=== PATIENT | female | born 1940 | race Caucasian/White ===

== ENCOUNTER 2017-03-10 08:19 | Day surgery (SDC) | payer MEDICARE, BC ==
[~2017-03-10] VITALS: Ht 157.5 cm; Wt 79.4 kg
[~2017-03-10 08:19] MED LIST: ACYCLOVIR400 MG PO; AMLODIPINE2.5 MG PO; AMLODIPINE5 MG PO; ASPIRIN81 MG PO; ATENOLOL100 MG PO; ATENOLOL50 MG PO; BABY ASPIRIN81 MG PO; BL MAGNESIUM250 MG PO; CALCIUM + D600 MG OR; CIPRO500 MG OR; CIPROFLOXACIN500 M1 PO; CIPROFLOXACN500 MG PO; CITALOPRAM20 MG PO; COQ-10100 M1 PO; CYTOMEL5 MCG OR; DOXYCYCL HYC100 MG PO; DULCOLAX5 MG PO; ELIQUIS2.5 MG PO; ENALAPRIL20 MG PO; EQ ASPIRIN81 M1 PO; FISH OIL1200 M1 OR; GLUCOSAMINE1500 MG OR; LANCETS SC; LEVOTHYROXIN100 MC1 PO; LEVOTHYROXIN100 MCG PO; LEVOTHYROXIN125 MC1 PO; LEVOTHYROXIN150 MC1 PO; LEVOXYL75 MCG PO; LIOTHYRONINE5 MCG PO; MAGNESIUM250 M1 PO; MEDROL4 M1 OR; OMEPRAZOLE20 MG PO; OXYBUTYNIN5 M1 PO; OXYBUTYNIN5 MG PO; PRAVASTATIN40 MG PO; PREDNISONE10 MG PO; PRILOSEC20 MG PO; PROAIR HFA IN; PROPAFENONE150 M1 PO; PROPAFENONE150 MG PO; ROBITUSSIN AC10 ML PO; RYBIX ODT50 MG PO; SITAVIG50 MG; TEST STRIPS SC; TYLENOL PM PO; ULTRAM50 M1 PO; VASOTEC10 MG PO; WOMENS MULTI OR; XANAX0.25 MG PO
[2017-03-10 09:57] VITALS: BP 126/76
== END 2017-03-10 10:10 | disposition home or self-care (01) ==
LOC: ENDO 08:19
PROVIDERS: ATTEND Surgery
PROC: 0DJ08ZZ Inspection of Upper Intestinal Tract, Via Natural or Artificial Opening Endoscopic (ICD-10-PCS; principal; 2017-03-10)
PROC: 0DJD8ZZ Inspection of Lower Intestinal Tract, Via Natural or Artificial Opening Endoscopic (ICD-10-PCS; 2017-03-10)
DX: D64.9 Anemia, unspecified (principal); R19.5 Other fecal abnormalities; I48.91 Unspecified atrial fibrillation; I10 Essential (primary) hypertension; J45.909 Unspecified asthma, uncomplicated; K29.70 Gastritis, unspecified, without bleeding; K57.30 Diverticulosis of large intestine without perforation or abscess without bleeding; Z79.01 Long term (current) use of anticoagulants

== ENCOUNTER → 2018-12-27 | Outpatient (REF) | payer MEDICARE ==
[2018-12-27 10:33] LABS: HEMATOCRIT 38.1 % (37.0-47.0); HEMOGLOBIN 12.2 g/dl (12.0-16.0); MEAN CELL VOLUME 80.2 fL CALC (80.0-100.0); MEAN CORPUSCULAR HGB 25.7 pG CALC (26.0-32.0); RED BLOOD COUNT 4.75 mill/uL (4.20-5.60); RED CELL DISTRI WIDTH 16.2 % (11.5-15.5)
[2018-12-27 11:03] LABS: ALBUMIN 4.4 g/dL (3.2-5.0); ALKALINE PHOSPHATASE 81 u/l (38-126); ANION GAP 18 (6-22 (CALC)); BILIRUBIN, TOTAL 0.5 mg/dL (0.0-1.4); BUN 20 mg/dL (8-23); BUN/CREATININE RATIO 24 (12-20 (CALC)); C-REACTIVE PROTEIN 1.5 mg/dL (0-0.9); CARBON DIOXIDE 25 mmol/l (22-30); CHLORIDE 102 mmol/l (95-108); CREATININE 0.8 mg/dL (0.5-1.0); GFR > 60 ML/MIN (>=60 (CALC)); GFR FOR AFR.AMER. > 60 ML/MIN (>=60 (CALC)); POTASSIUM 4.2 mmol/l (3.5-5.1); SGOT/AST 44 u/l (9-36); SODIUM 141 mmol/l (137-146); TOTAL PROTEIN 7.1 g/dL (6.3-8.2)
== END | disposition home or self-care (01) ==
LOC: LAB 10:12
PROVIDERS: ATTEND Internal Medicine
DX: E03.9 Hypothyroidism, unspecified (principal); I48.0 Paroxysmal atrial fibrillation; M12.9 Arthropathy, unspecified; M54.9 Dorsalgia, unspecified; M15.0 Primary generalized (osteo)arthritis; M06.9 Rheumatoid arthritis, unspecified; R76.8 Other specified abnormal immunological findings in serum

== ENCOUNTER → 2019-01-11 | Outpatient (REF) | payer MEDICARE | END | disposition home or self-care (01) | LOC: STRESS 14:48 → NUCMED 15:00 | PROVIDERS: ATTEND Internal Medicine | DX: I48.1 Persistent atrial fibrillation (principal); I34.0 Nonrheumatic mitral (valve) insufficiency; I49.9 Cardiac arrhythmia, unspecified; R00.2 Palpitations | CPT/HCPCS: A9502; J2785 ==

== ENCOUNTER 2021-09-09 11:32 | Emergency (ER) | payer MEDICARE ==
[~2021-09-09] VITALS: Ht 157.5 cm; Wt 74.0 kg
[~2021-09-09 11:32] MED LIST changes: -PRILOSEC20 MG PO; +PRILOSEC20 MG/CAP PO
[2021-09-09 13:35] VITALS: BP 131/77
[2021-09-09] MEDS ORDERED: METFORMIN500 M2 PO (14:45)
[2021-09-09] MEDS ORDERED: PROPAFENONE225 MG PO (14:47)
[2021-09-09] MEDS ORDERED: LOSARTAN POTAS100 MG PO (14:47)
[2021-09-09] MEDS ORDERED: AMLODIPINE BESY10 MG PO (14:48)
[2021-09-09] MEDS ORDERED: COQ10200 MG PO (14:49)
[2021-09-09] MEDS ORDERED: ACYCLOVIR200 MG PO (14:53)
[2021-09-09] MEDS ORDERED: ALBUTEROL SUL0.083 % IN (14:54)
[2021-09-09] MEDS ORDERED: SYMBICORT1 AE1 IN (14:54)
[2021-09-09] MEDS ORDERED: ALLERGY RE50 MCG/ACT NAB (14:55)
[2021-09-09] MEDS ORDERED: APRESOLINE10 MG PO (14:56)
[2021-09-09] MEDS ORDERED: LUMIGAN0.01 % OU (14:57)
[2021-09-09] MEDS ORDERED: FISH OIL1000 MG PO (14:58)
[2021-09-09] MEDS ORDERED: LUTEIN20 MG PO (14:58)
[2021-09-09] MEDS ORDERED: ZINC50 M1 PO (14:59)
[2021-09-09] MEDS ORDERED: VITAMIN C500 M6 PO (15:00)
[2021-09-09] MEDS ORDERED: COGNIUM PO (15:01)
== END 2021-09-09 13:35 | disposition home or self-care (01) ==
LOC: ED 11:32
DX: S80.01XA Contusion of right knee, initial encounter (principal); S80.211A Abrasion, right knee, initial encounter; M25.551 Pain in right hip; I10 Essential (primary) hypertension; E11.9 Type 2 diabetes mellitus without complications; J44.9 Chronic obstructive pulmonary disease, unspecified; E03.9 Hypothyroidism, unspecified; E78.5 Hyperlipidemia, unspecified; W06.XXXA Fall from bed, initial encounter; Y92.003 Bedroom of unspecified non-institutional (private) residence as the place of occurrence of the external cause; Z79.84 Long term (current) use of oral hypoglycemic drugs; Z96.651 Presence of right artificial knee joint

== ENCOUNTER 2022-12-12 15:53 | Emergency (ER) | payer MEDICARE ==
[2022-12-12] VITALS (10 sets, daily range): BP systolic 127–204; BP diastolic 58–80
[~2022-12-12] VITALS: Ht 157.5 cm; Wt 90.0 kg
[~2022-12-12 15:53] MED LIST changes: +ACYCLOVIR200 MG PO; +ALBUTEROL SUL0.083 % IN; +ALLERGY RE50 MCG/ACT NAB; +AMLODIPINE BESY10 MG PO; +APRESOLINE10 MG PO; +COGNIUM PO; +COQ10200 MG PO; +FISH OIL1000 MG PO; +LOSARTAN POTAS100 MG PO; +LUMIGAN0.01 % OU; +LUTEIN20 MG PO; +METFORMIN500 M2 PO; +PROPAFENONE225 MG PO; +SYMBICORT1 AE1 IN; +VITAMIN C500 M6 PO; +ZINC50 M1 PO
[2022-12-12 16:38] LABS: BASO% 0.9 % (0-3); EOS% 5.5 % (0-8); HEMATOCRIT 37.8 % (37.0-47.0); HEMOGLOBIN 12.2 g/dl (12.0-16.0); IMMATURE GRANULOCYTES 0.1 % (0.0-5.0); LYMPH% 20.5 % (15-41); MEAN CELL VOLUME 86.5 fL CALC (80.0-100.0); MEAN CORPUSCULAR HGB 27.9 pG CALC (26.0-32.0); MEAN CORPUSCULAR HGB CONC 32.3 g/dL CAL (32.0-36.0); MONO% 7.5 % (2-13); NEUT# 5.52 thou/uL (2.00-7.15); NEUT% 65.5 % (42-76); RED BLOOD COUNT 4.37 mill/uL (4.20-5.60); RED CELL DISTRI WIDTH 13.3 % (11.5-15.5)
[2022-12-12 16:49] LABS: ALBUMIN 4.1 g/dL (3.2-5.0); ALKALINE PHOSPHATASE 72 u/l (38-126); BUN 11 mg/dL (8-23); BUN/CREATININE RATIO 14 (12-20 (CALC)); CHLORIDE 107 mmol/l (95-108); CREATININE 0.8 mg/dL (0.5-1.0); GFR FOR AFR.AMER. > 60 ML/MIN (>=60 (CALC)); GFR OTHER RACES > 60 ML/MIN (>=60 (CALC)); POTASSIUM 3.7 mmol/l (3.5-5.1); SGOT/AST 23 u/l (9-36); SODIUM 140 mmol/l (137-146); TOTAL PROTEIN 6.8 g/dL (6.3-8.2)
[2022-12-12 16:57] LABS: ANION GAP 8 (6-22 (CALC)); BILIRUBIN, TOTAL 0.1 mg/dL (0.02-1.3); CARBON DIOXIDE 29 mmol/l (22-30)
[2022-12-12] MEDS ORDERED: VIBRAMYCIN100 M2 PO (19:05)
[2022-12-12] MEDS ORDERED: PREDNISONE50 MG PO (19:05)
[2022-12-12] MEDS ORDERED: VENTOLIN HFA IN (19:05)
== END 2022-12-12 19:46 | disposition home or self-care (01) ==
LOC: ED 15:53
PROVIDERS: Emergency Medicine
DX: J44.1 Chronic obstructive pulmonary disease with (acute) exacerbation (principal); I10 Essential (primary) hypertension; E11.9 Type 2 diabetes mellitus without complications; E03.9 Hypothyroidism, unspecified; E78.5 Hyperlipidemia, unspecified; F17.200 Nicotine dependence, unspecified, uncomplicated; Z20.822 Contact with and (suspected) exposure to COVID-19

== ENCOUNTER 2023-01-11 14:32 | Emergency (ER) | payer MEDICARE ==
[~2023-01-11] VITALS: Ht 157.5 cm; Wt 66.7 kg
[~2023-01-11 14:32] MED LIST changes: +PREDNISONE50 MG PO; +VENTOLIN HFA IN; +VIBRAMYCIN100 M2 PO
[2023-01-11 14:53] VITALS: BP 132/50
[2023-01-11 15:01] VITALS: BP 128/94
[2023-01-11 15:31] LABS: BASO% 0.9 % (0-3); EOS% 2.9 % (0-8); HEMATOCRIT 35.8 % (37.0-47.0); IMMATURE GRANULOCYTES 0.2 % (0.0-5.0); LYMPH% 22.8 % (15-41); MEAN CELL VOLUME 85.4 fL CALC (80.0-100.0); MEAN CORPUSCULAR HGB 26.7 pG CALC (26.0-32.0); MEAN CORPUSCULAR HGB CONC 31.3 g/dL CAL (32.0-36.0); MONO% 6.2 % (2-13); NEUT# 4.45 thou/uL (2.00-7.15); RED BLOOD COUNT 4.19 mill/uL (4.20-5.60); RED CELL DISTRI WIDTH 14.6 % (11.5-15.5)
[2023-01-11 15:33] LABS: HEMOGLOBIN 11.2 g/dl (12.0-16.0)
[2023-01-11 15:47] LABS: ALKALINE PHOSPHATASE 76 u/l (38-126); ANION GAP 15 (6-22 (CALC)); BILIRUBIN, TOTAL 0.3 mg/dL (0.02-1.3); BUN 19 mg/dL (8-23); BUN/CREATININE RATIO 21 (12-20 (CALC)); CHLORIDE 105 mmol/l (95-108); CREATININE 0.9 mg/dL (0.5-1.0); GFR FOR AFR.AMER. > 60 ML/MIN (>=60 (CALC)); GFR OTHER RACES 60 ML/MIN (>=60 (CALC)); SGOT/AST 28 u/l (9-36); SODIUM 139 mmol/l (137-146); TOTAL PROTEIN 6.7 g/dL (6.3-8.2)
[2023-01-11 15:50] LABS: CARBON DIOXIDE 23 mmol/l (22-30)
[2023-01-11] MEDS ORDERED: ALBUTEROL SUL0.083 % IN (15:53)
[2023-01-11] MEDS ORDERED: PREDNISONE50 MG PO (15:53)
[2023-01-11] MEDS ORDERED: DOXYCYCLINE100 MG PO (15:53)
[2023-01-11] MEDS ORDERED: VENTOLIN HFA108 MCG PO (15:53)
[2023-01-11 16:25] VITALS: BP 128/94
== END 2023-01-11 16:36 | disposition home or self-care (01) ==
LOC: ED 14:32
PROVIDERS: Family Medicine
DX: J44.1 Chronic obstructive pulmonary disease with (acute) exacerbation (principal); I10 Essential (primary) hypertension; E11.9 Type 2 diabetes mellitus without complications; E03.9 Hypothyroidism, unspecified; E78.5 Hyperlipidemia, unspecified; F17.210 Nicotine dependence, cigarettes, uncomplicated; Z79.84 Long term (current) use of oral hypoglycemic drugs; Z20.822 Contact with and (suspected) exposure to COVID-19

== ENCOUNTER 2023-06-23 02:45 | Observation (INO) | payer MEDICARE ==
[2023-06-23] VITALS (15 sets, daily range): BP systolic 114–175; BP diastolic 43–127
[~2023-06-23] VITALS: Ht 157.5 cm; Wt 70.3 kg
[~2023-06-23 02:45] MED LIST changes: +DOXYCYCLINE100 MG PO; +VENTOLIN HFA108 MCG PO
--- NOTE | 2023-06-23 02:45 | NUR ---
PT TO ED ROOM - DAUGHTER COME IN ER IN PANIC STATING HER MOTHER CANNOT BREATH; ED RN TOOK WC TO CAR IN PARKING LOT TO PICK PT UP; PT ALERT ORIENTED AND WITH ACCELLERATED BREATHING
[2023-06-23 03:24] LABS: BASO% 1.3 % (0-3); EOS% 5.8 % (0-8); HEMATOCRIT 26.2 % (37.0-47.0); HEMOGLOBIN 7.6 g/dl (12.0-16.0); IMMATURE GRANULOCYTES 0.2 % (0.0-5.0); LYMPH% 27.4 % (15-41); MEAN CELL VOLUME 70.8 fL CALC (80.0-100.0); MEAN CORPUSCULAR HGB 20.5 pG CALC (26.0-32.0); MONO% 5.8 % (2-13); NEUT# 5.94 thou/uL (2.00-7.15); NEUT% 59.5 % (42-76); RED BLOOD COUNT 3.7 mill/uL (4.20-5.60); RED CELL DISTRI WIDTH 17.7 % (11.5-15.5)
--- NOTE | 2023-06-23 03:30 | NUR ---
PT RESTING; PT RESTLESS BUT 02 IS 100% ON 3L NC; VSS
[2023-06-23 03:36] LABS: INTERNATIONAL NORMALIZED RATIO 1.1 RATIO (0.7-1.3); PROTHROMBIN TIME 10.6 SECONDS (9.0-12.5)
[2023-06-23 03:38] LABS: ALBUMIN 4.4 g/dL (3.2-5.0); ALKALINE PHOSPHATASE 74 u/l (38-126); BILIRUBIN, TOTAL 0.6 mg/dL (0.02-1.3); BUN 23 mg/dL (8-23); BUN/CREATININE RATIO 22 (12-20 (CALC)); CHLORIDE 105 mmol/l (95-108); CREATININE 1.1 mg/dL (0.5-1.0); GFR FOR AFR.AMER. 57 ML/MIN (>=60 (CALC)); GFR OTHER RACES 47 ML/MIN (>=60 (CALC)); POTASSIUM 3.9 mmol/l (3.5-5.1); SODIUM 138 mmol/l (137-146); TOTAL PROTEIN 7.6 g/dL (6.3-8.2)
[2023-06-23 03:45] LABS: ANION GAP 16 (6-22 (CALC)); CARBON DIOXIDE 21 mmol/l (22-30); SGOT/AST 51 u/l (9-36)
--- NOTE | 2023-06-23 04:38 | NUR ---
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
--- NOTE | 2023-06-23 05:45 | NUR ---
PT TO CTA SCAN; BREEZY IV PLACED VIA ULTRASOUND WITH US GUIDED 20G
--- NOTE | 2023-06-23 06:06 | NUR ---
PT RETURNED BACK FROM CT SCAN; PT WAS ABLE TO MAKE IT THROUGH DESPITE ANXIOUSNESS; PT PLACED ON PURWICK; BACK ON MONITOR; VSS BUT PATIENT REMAINS RESTLESS.
--- NOTE | 2023-06-23 06:15 | NUR ---
PT BEATRIZ REPLACED AND WORKING WELL, VSS
--- NOTE | 2023-06-23 07:00 | NUR ---
UNABLE TO TX PT DUE TO CARE FOR ANOTHER PT. PT VSS AND NAD; HANDING OFF REPORT TO DAYSNDFT RN
--- NOTE | 2023-06-23 07:15 | NUR ---
VERBAL REPORT RECIEVED BY JAIMIE MICHAEL. SN NOW ASSUMING CARE OF THE PATIENT AT THIS TIME. PATIENT IN NO DISTRESS. OXYGEN APPLIED AT 2L VIA NASAL CANNULA. MONITOR SHOWS NSR. REPAEAT EKG COMPLETED. REVIEWED LABS, BED ASSIGMENT RECIEVED ON TIMERS INSPECTOR.
[2023-06-23] MEDS ORDERED: MECLIZINE25 MG PO (07:45)
[2023-06-23] MEDS ORDERED: FUROSEMIDE20 MG PO (07:46)
[2023-06-23] MEDS ORDERED: AMBIEN5 MG PO (07:47)
[2023-06-23] MEDS ORDERED: XALATAN 0.005%2.5 ML OU (07:49)
--- NOTE | 2023-06-23 07:50 | NUR ---
VERBAL REPORT CALLED TO FATEMEH MICHAEL ON MED-SURG. PATIENT PREPARED FOR TRANSFER TO THE FLOOR.
[2023-06-23] MEDS ORDERED: BRIMONIDINE0.15 % OU (07:51)
--- NOTE | 2023-06-23 08:30 | NUR ---
Patient arrived via w/c from ED with FERNANDA Buchanan. Bedside report completed. Patient in no distress, AAO, on 2L NC, ambulatory to bathroom with no assistance. #20 x 2 to LUE, saline locked, no pain or redness.
[2023-06-23] MEDS ORDERED: MAGNESIUM CITR100 M1 PO (10:34)
[2023-06-23] MEDS ORDERED: ZINC50 M1 PO (10:35)
[2023-06-23] MEDS ORDERED: TURMERIC CURCU500 MG PO (10:39)
--- NOTE | 2023-06-23 11:28 | NUR ---
pt glucose was 165 @1100
[2023-06-23 11:33] LABS: BASO% 0.8 % (0-3); HEMATOCRIT 25.3 % (37.0-47.0); HEMOGLOBIN 7.5 g/dl (12.0-16.0); IMMATURE GRANULOCYTES 0.9 % (0.0-5.0); LYMPH% 6.1 % (15-41); MEAN CELL VOLUME 70.1 fL CALC (80.0-100.0); MEAN CORPUSCULAR HGB 20.8 pG CALC (26.0-32.0); MEAN CORPUSCULAR HGB CONC 29.6 g/dL CAL (32.0-36.0); MONO% 0.8 % (2-13); NEUT# 8.48 thou/uL (2.00-7.15); NEUT% 91.4 % (42-76); RED BLOOD COUNT 3.61 mill/uL (4.20-5.60); RED CELL DISTRI WIDTH 17.9 % (11.5-15.5)
--- NOTE | 2023-06-23 12:40 | NUR ---
Patient returned to bed from EOB for lunch. Daughter at bedside and updated with POC. No questions at this time. VSS. No complaints at this time. Continues with 2L NC.
[2023-06-23 12:41] LABS: ALBUMIN 4.2 g/dL (3.2-5.0); ALKALINE PHOSPHATASE 74 u/l (38-126); ANION GAP 19 (6-22 (CALC)); BILIRUBIN, TOTAL 0.4 mg/dL (0.02-1.3); BUN 20 mg/dL (8-23); BUN/CREATININE RATIO 22 (12-20 (CALC)); CARBON DIOXIDE 20 mmol/l (22-30); CHLORIDE 105 mmol/l (95-108); CREATININE 0.9 mg/dL (0.5-1.0); GFR FOR AFR.AMER. > 60 ML/MIN (>=60 (CALC)); GFR OTHER RACES 60 ML/MIN (>=60 (CALC)); POTASSIUM 4.1 mmol/l (3.5-5.1); SGOT/AST 45 u/l (9-36); SODIUM 139 mmol/l (137-146); TOTAL PROTEIN 6.8 g/dL (6.3-8.2)
--- NOTE | 2023-06-23 15:17 | NUR ---
pt glucose was 237 @1515
--- NOTE | 2023-06-23 16:55 | NUR ---
Patient remains in bed, independently repositions. Daughter given update on POC at this time, no additional questions. 2L NC continues. NAD, VSS.
--- NOTE | 2023-06-23 19:00 | NUR ---
HAND OFF REPORT RECEIVE FROM RICKI
--- NOTE | 2023-06-23 19:09 | NUR ---
Report to FERNANDA Mast;. Handoff of care at this time.
--- NOTE | 2023-06-23 20:02 | NUR ---
PATIENT RESTING QUIELTY WITH EYES CLOSED, RESPIRATIONS EVEN AND UNLABORED, LIGHTS OFF FOR COMFORT, NO C/O PAIN OR DISCOMFORT, NO S/S OF DISTRESS NOTED AT THIS TIME.
--- NOTE | 2023-06-23 22:00 | NUR ---
PATIENT RESTING WITH EYES CLOSED, RESPIRATIONS EVEN AND UNLABORED ON O2@2L VIA NC, NO C/O PAIN OR DISCOMFORT, NO S/S OF DISTRESS NOTED.
--- NOTE | 2023-06-23 22:38 | NUR ---
RESPIRATORY AT THE BEDSIDE
[2023-06-24] VITALS (24 sets, daily range): BP systolic 114–158; BP diastolic 37–122
--- NOTE | 2023-06-24 00:02 | NUR ---
PATIENT RESTING QUIETLY WITH EYES CLOSED, RESPIRATIONS EVEN AND UNLABORED N O2@2L BY NC, NO C/O PAIN OR DISCOMFORT, NO S/S OF DISTRESS NOTED, LIGHTS OFF FOR PATIENT COMFORT.
--- NOTE | 2023-06-24 04:00 | NUR ---
PATIENT UP TO BEDSIDE COMMODE INDEPENDENTLY, RESPIRATIONS EVEN AND UNALBORED, SOB WITH EXERTION, NO C/O PAIN OR DISCOMFORT, NO S/S OF DISTRESS NOTED, PATIENT ON O2@2L BY NC
[2023-06-24 06:15] LABS: HEMATOCRIT 23.4 % (37.0-47.0); MEAN CELL VOLUME 70.5 fL CALC (80.0-100.0); MEAN CORPUSCULAR HGB 21.1 pG CALC (26.0-32.0); MEAN CORPUSCULAR HGB CONC 29.9 g/dL CAL (32.0-36.0); RED BLOOD COUNT 3.32 mill/uL (4.20-5.60); RED CELL DISTRI WIDTH 18.1 % (11.5-15.5)
[2023-06-24 06:29] LABS: ANION GAP 16 (6-22 (CALC)); BUN 28 mg/dL (8-23); BUN/CREATININE RATIO 28 (12-20 (CALC)); CALCULATED LDLCHOLESTEROL 79 mg/dL (62-129 (CALC)); CARBON DIOXIDE 22 mmol/l (22-30); CHLORIDE 105 mmol/l (95-108); CHOLESTEROL HDL RATIO 2.4 (<4.4 (CALC)); GFR FOR AFR.AMER. > 60 ML/MIN (>=60 (CALC)); GFR OTHER RACES 53 ML/MIN (>=60 (CALC)); HDL CHOLESTEROL 64 mg/dL (39.0-59.0); MAGNESIUM 1.6 mg/dL (1.6-2.3); POTASSIUM 4.6 mmol/l (3.5-5.1); SODIUM 138 mmol/l (137-146); TOTAL CHOLESTEROL 156 mg/dl (0-199); TOTAL TRIGLYCERIDES 67 mg/dl (0-149); VLDL CHOLESTROL 13 mg/dl (0-48 (CALC))
--- NOTE | 2023-06-24 10:13 | NUR ---
PT AWAKE, ALERT, ORIENTED X 3. LUNGS CLEAR, DIMINISHED, 2 LPM NC. PT AMBULATORY TO BR NEEDED WITH STANDBY ASSIST. BLOOD TRANSFUSION IN PROGRESS WITHOUT ADVERSE REACTION NOTED.
--- NOTE | 2023-06-24 12:13 | NUR ---
BLOOD TRANSFUSION COMPLETED WITHOUT A PROBLEM. DAUGHTER ERIC AT BEDSIDE.
--- NOTE | 2023-06-24 16:36 | NUR ---
PT AT REST IN THE BED, NO DISTRESS, NO COMPLAINTS.
--- NOTE | 2023-06-24 19:00 | NUR ---
HAND OFF REPORT RECEIVED FROM PEGGY
--- NOTE | 2023-06-24 19:53 | NUR ---
PATIENT AWAKE AND ALERT, TALKING ON THE TELEPHONE, RESPIRATIONS EVEN AND UNLABORED ON O2@2L BY NC, NO C/O PAIN OR DISCOMFORT, NO S/S OF DISTRESS NOTED.
--- NOTE | 2023-06-24 22:00 | NUR ---
PATIENT RESTING QUIETLY WITH EYES CLOSED, RESPIRATIONS EVEN AN DUNALBORED ON O222L BY NC, NO C/O PAIN OR DISCOMFORT, NO S/S OF DISTRESS NOTED.
--- NOTE | 2023-06-24 22:30 | NUR ---
RESPIRATORY AT BEDSIDE.
--- NOTE | 2023-06-25 00:06 | NUR ---
PATIENT UP TOT HE BATHROOM, NO C/O PAIN, NO S/S OF DISTRESS NOTED, SOB ON EXERTION
--- NOTE | 2023-06-25 02:00 | NUR ---
PATIENT RESTING QUIETLY WITH EYES CLOSED, RESPIRATIONS EVEN AND UNLABORED
--- NOTE | 2023-06-25 05:46 | NUR ---
lab at bedside
[2023-06-25 06:03] LABS: BASO% 0.2 % (0-3); HEMATOCRIT 28.1 % (37.0-47.0); HEMOGLOBIN 8.4 g/dl (12.0-16.0); IMMATURE GRANULOCYTES 0.3 % (0.0-5.0); LYMPH% 5.8 % (15-41); MEAN CELL VOLUME 72.8 fL CALC (80.0-100.0); MEAN CORPUSCULAR HGB 21.8 pG CALC (26.0-32.0); MEAN CORPUSCULAR HGB CONC 29.9 g/dL CAL (32.0-36.0); MONO% 2.5 % (2-13); NEUT# 11.35 thou/uL (2.00-7.15); NEUT% 91.2 % (42-76); RED BLOOD COUNT 3.86 mill/uL (4.20-5.60); RED CELL DISTRI WIDTH 19.2 % (11.5-15.5)
[2023-06-25 06:17] LABS: ALBUMIN 3.8 g/dL (3.2-5.0); ALKALINE PHOSPHATASE 64 u/l (38-126); ANION GAP 14 (6-22 (CALC)); BILIRUBIN, TOTAL 0.5 mg/dL (0.02-1.3); BUN 38 mg/dL (8-23); BUN/CREATININE RATIO 39 (12-20 (CALC)); CARBON DIOXIDE 22 mmol/l (22-30); CHLORIDE 108 mmol/l (95-108); GFR FOR AFR.AMER. > 60 ML/MIN (>=60 (CALC)); GFR OTHER RACES 53 ML/MIN (>=60 (CALC)); MAGNESIUM 1.7 mg/dL (1.6-2.3); POTASSIUM 4.8 mmol/l (3.5-5.1); SGOT/AST 58 u/l (9-36); SODIUM 138 mmol/l (137-146); TOTAL PROTEIN 6.3 g/dL (6.3-8.2)
[2023-06-25 07:20] VITALS: BP 188/80
--- NOTE | 2023-06-25 07:57 | NUR ---
Patient sitting up on side of bed eating breakfast. Denies any pain at this time. Lungs coarse to ascultation. Ambulatory. Breathing even and unlabored on 2L NC. Afebrile. 22 LFA flushes and draws well. Pulses strong. NAD noted. Bed in low position. Call light next to RA. Will continue to monitor.
[2023-06-25 08:07] VITALS: BP 153/61
[2023-06-25 08:56] VITALS: BP 153/61
--- NOTE | 2023-06-25 10:41 | NUR ---
Patient up to chair. Daughter at bedtime awaiting discharge orders. Daughter/patient advised of lab add-on. Stated will call once orders are received as daughter has not had breakfast. Denies pain at this time. SR on the monitor. NAD noted. Will continue to monitor.
[2023-06-25] MEDS ORDERED: PREDNISONE10 MG PO (11:56)
--- NOTE | 2023-06-25 12:17 | NUR ---
Discharge instructions given. Patient verbalizes understanding of same. Discharged in stable condition via WHEELCHAIR to Home with family. All belongings sent with pt.
== END 2023-06-25 12:17 | disposition home or self-care (01) ==
LOC: ED 02:45 → MS2 05:03 → ICU 05:03 → MS2 05:03 → ICU 08:55
PROVIDERS: Emergency Medicine; Nurse Practitioner Family; ADMIT Student in an Organized Health Care Education/Training Program; ATTEND Student in an Organized Health Care Education/Training Program
PROC: 30233N1 Transfusion of Nonautologous Red Blood Cells into Peripheral Vein, Percutaneous Approach (ICD-10-PCS; principal; 2023-06-24)
DX: J44.1 Chronic obstructive pulmonary disease with (acute) exacerbation (principal); D50.9 Iron deficiency anemia, unspecified; I10 Essential (primary) hypertension; E11.9 Type 2 diabetes mellitus without complications; I48.91 Unspecified atrial fibrillation; I48.92 Unspecified atrial flutter; E89.2 Postprocedural hypoparathyroidism; E03.9 Hypothyroidism, unspecified; E78.5 Hyperlipidemia, unspecified; K21.9 Gastro-esophageal reflux disease without esophagitis; Z95.818 Presence of other cardiac implants and grafts; Z79.84 Long term (current) use of oral hypoglycemic drugs; Z99.81 Dependence on supplemental oxygen
CPT/HCPCS: P9016; Q9967

== ENCOUNTER 2023-07-09 07:47 | Observation (INO) | payer MEDICARE ==
[2023-07-09] VITALS (65 sets, daily range): BP systolic 111–170; BP diastolic 51–128
[~2023-07-09] VITALS: Ht 157.5 cm; Wt 69.4 kg
[~2023-07-09 07:47] MED LIST changes: +AMBIEN5 MG PO; -BL MAGNESIUM250 MG PO; +BRIMONIDINE0.15 % OU; +FISH OIL DOUB1200 MG PO; -FISH OIL1000 MG PO; +FUROSEMIDE20 MG PO; +MAGNESIUM CITR100 M1 PO; +MAGNESIUM CITR100 MG PO; +MECLIZINE25 MG PO; +OMEPRAZOLE DR40 MG PO; -PRILOSEC20 MG/CAP PO; +TURMERIC CURCU500 MG PO; +XALATAN 0.005%2.5 ML OU
[2023-07-09] MEDS ORDERED: LEVOTHYROXIN175 MC1 PO (08:27)
[2023-07-09] MEDS ORDERED: ACYCLOVIR400 MG PO (08:31)
[2023-07-09] MEDS ORDERED: MECLIZINE25 MG PO (08:33)
[2023-07-09] MEDS ORDERED: XALATAN 0.005%2.5 ML OU (08:36)
[2023-07-09] MEDS ORDERED: D32000 UNIT PO (08:45)
[2023-07-09 08:59] LABS: BASO% 0.7 % (0-3); EOS% 1.9 % (0-8); HEMATOCRIT 29.5 % (37.0-47.0); HEMOGLOBIN 8.6 g/dl (12.0-16.0); IMMATURE GRANULOCYTES 0.2 % (0.0-5.0); LYMPH% 7.9 % (15-41); MEAN CELL VOLUME 74.7 fL CALC (80.0-100.0); MEAN CORPUSCULAR HGB 21.8 pG CALC (26.0-32.0); MEAN CORPUSCULAR HGB CONC 29.2 g/dL CAL (32.0-36.0); MONO% 4.8 % (2-13); NEUT# 13.42 thou/uL (2.00-7.15); NEUT% 84.5 % (42-76); RED BLOOD COUNT 3.95 mill/uL (4.20-5.60); RED CELL DISTRI WIDTH 21.9 % (11.5-15.5)
[2023-07-09 09:20] LABS: ALBUMIN 4.2 g/dL (3.2-5.0); ALKALINE PHOSPHATASE 80 u/l (38-126); BUN 20 mg/dL (8-23); BUN/CREATININE RATIO 20 (12-20 (CALC)); CHLORIDE 106 mmol/l (95-108); GFR FOR AFR.AMER. > 60 ML/MIN (>=60 (CALC)); GFR OTHER RACES 53 ML/MIN (>=60 (CALC)); POTASSIUM 3.5 mmol/l (3.5-5.1); SODIUM 140 mmol/l (137-146)
[2023-07-09 09:21] LABS: INTERNATIONAL NORMALIZED RATIO 1.1 RATIO (0.7-1.3); PROTHROMBIN TIME 10.6 SECONDS (9.0-12.5)
[2023-07-09 09:31] LABS: ANION GAP 18 (6-22 (CALC)); BILIRUBIN, TOTAL 0.7 mg/dL (0.02-1.3); CARBON DIOXIDE 20 mmol/l (22-30); SGOT/AST 61 u/l (9-36); TOTAL PROTEIN 7.1 g/dL (6.3-8.2)
[2023-07-09 12:24] LABS: URINE BILIRUBIN - DIPSTICK Negative (NEGATIVE); URINE BLOOD DIPSTICK Negative (NEGATIVE); URINE GLUCOSE - DIPSTICK 100 mg/dL (NEGATIVE); URINE KETONE Negative (NEGATIVE); URINE LEUK ESTERASE Negative (NEGATIVE); URINE NITRITE - DIPSTICK Negative (Negative); URINE PH 6.5 (4.5-8.0); URINE PROTEIN - DIPSTICK Negative (NEG-TRACE); URINE SPECIFIC GRAVITY 1.015; URINE UROBILINOGEN - DIPSTICK 0.2 E.U./dL (0.2)
[2023-07-09 12:29] LABS: URINE COLOR Yellow
[2023-07-10 00:11] VITALS: BP 141/57
[2023-07-10 04:20] VITALS: BP 144/54
[2023-07-10 05:25] LABS: BASO% 0.3 % (0-3); HEMOGLOBIN 7.6 g/dl (12.0-16.0); MEAN CELL VOLUME 71.6 fL CALC (80.0-100.0); MEAN CORPUSCULAR HGB 21.8 pG CALC (26.0-32.0); MEAN CORPUSCULAR HGB CONC 30.4 g/dL CAL (32.0-36.0); MONO% 4.7 % (2-13); NEUT# 9.44 thou/uL (2.00-7.15); RED BLOOD COUNT 3.49 mill/uL (4.20-5.60); RED CELL DISTRI WIDTH 21.4 % (11.5-15.5)
[2023-07-10 05:35] LABS: ALBUMIN 3.7 g/dL (3.2-5.0); ALKALINE PHOSPHATASE 67 u/l (38-126); BILIRUBIN, TOTAL 0.9 mg/dL (0.02-1.3); BUN 22 mg/dL (8-23); BUN/CREATININE RATIO 22 (12-20 (CALC)); CHLORIDE 104 mmol/l (95-108); GFR FOR AFR.AMER. > 60 ML/MIN (>=60 (CALC)); GFR OTHER RACES 53 ML/MIN (>=60 (CALC)); POTASSIUM 3.6 mmol/l (3.5-5.1); SGOT/AST 39 u/l (9-36); SODIUM 138 mmol/l (137-146); TOTAL PROTEIN 6.2 g/dL (6.3-8.2)
[2023-07-10 05:37] LABS: ANION GAP 10 (6-22 (CALC)); CARBON DIOXIDE 28 mmol/l (22-30); MAGNESIUM 1.2 mg/dL (1.6-2.3)
[2023-07-10 06:55] VITALS: BP 134/54
[2023-07-10 11:54] VITALS: BP 134/54
[2023-07-10 14:36] VITALS: BP 130/68
[2023-07-10 19:55] VITALS: BP 148/64
[2023-07-11 00:07] VITALS: BP 128/58
[2023-07-11 04:05] VITALS: BP 113/56
[2023-07-11 06:42] LABS: BASO% 0.8 % (0-3); EOS% 0.6 % (0-8); HEMATOCRIT 28.8 % (37.0-47.0); IMMATURE GRANULOCYTES 0.3 % (0.0-5.0); LYMPH% 12.4 % (15-41); MEAN CELL VOLUME 71.5 fL CALC (80.0-100.0); MEAN CORPUSCULAR HGB 22.3 pG CALC (26.0-32.0); MEAN CORPUSCULAR HGB CONC 31.3 g/dL CAL (32.0-36.0); NEUT# 8.47 thou/uL (2.00-7.15); NEUT% 78.9 % (42-76); RED BLOOD COUNT 4.03 mill/uL (4.20-5.60); RED CELL DISTRI WIDTH 21.7 % (11.5-15.5)
[2023-07-11 06:54] LABS: ALBUMIN 3.9 g/dL (3.2-5.0); CREATININE 1.1 mg/dL (0.5-1.0); MAGNESIUM 1.5 mg/dL (1.6-2.3); POTASSIUM 3.2 mmol/l (3.5-5.1); TOTAL PROTEIN 6.5 g/dL (6.3-8.2)
[2023-07-11 06:55] LABS: BILIRUBIN, TOTAL 1.4 mg/dL (0.02-1.3)
[2023-07-11 07:16] VITALS: BP 116/63
[2023-07-11 08:25] VITALS: BP 141/73
[2023-07-11 10:33] VITALS: BP 101/43
[2023-07-11] MEDS ORDERED: FUROSEMIDE20 MG PO (13:07)
[2023-07-11] MEDS ORDERED: IRON325 M1 PO (13:14)
== END 2023-07-11 15:00 | disposition home or self-care (01) ==
LOC: ED 07:47 → ED-I 12:53 → ED 13:02 → MS2 13:03
PROVIDERS: Family Medicine; Nurse Practitioner Family; ADMIT Student in an Organized Health Care Education/Training Program; ATTEND Student in an Organized Health Care Education/Training Program
DX: I11.0 Hypertensive heart disease with heart failure (principal); I50.33 Acute on chronic diastolic (congestive) heart failure; D50.9 Iron deficiency anemia, unspecified; E11.9 Type 2 diabetes mellitus without complications; J44.9 Chronic obstructive pulmonary disease, unspecified; I48.91 Unspecified atrial fibrillation; E03.9 Hypothyroidism, unspecified; E78.5 Hyperlipidemia, unspecified; K21.9 Gastro-esophageal reflux disease without esophagitis; F17.210 Nicotine dependence, cigarettes, uncomplicated; Z91.128 Patient's intentional underdosing of medication regimen for other reason; T50.1X6A Underdosing of loop [high-ceiling] diuretics, initial encounter; Z95.818 Presence of other cardiac implants and grafts; Z20.822 Contact with and (suspected) exposure to COVID-19
CPT/HCPCS: J1756; J3475; P9047

== ENCOUNTER 2023-11-12 23:19 | Inpatient (IN) | payer MEDICARE ==
[~2023-11-12] VITALS: Ht 157.5 cm; Wt 74.4 kg
[~2023-11-12 23:19] MED LIST changes: +D32000 UNIT PO; +IRON325 M1 PO; +LEVOTHYROXIN175 MC1 PO; +MEDDOSEPAK PO; +VANTIN200 M1 PO
[2023-11-12 23:40] LABS: BASO% 0.8 % (0-3); EOS% 7.1 % (0-8); HEMATOCRIT 39.9 % (37.0-47.0); HEMOGLOBIN 11.6 g/dl (12.0-16.0); IMMATURE GRANULOCYTES 0.4 % (0.0-5.0); LYMPH% 41.6 % (15-41); MEAN CORPUSCULAR HGB 24.4 pG CALC (26.0-32.0); MEAN CORPUSCULAR HGB CONC 29.1 g/dL CAL (32.0-36.0); MONO% 6.8 % (2-13); NEUT# 6.06 thou/uL (2.00-7.15); NEUT% 43.3 % (42-76); RED BLOOD COUNT 4.76 mill/uL (4.20-5.60); RED CELL DISTRI WIDTH 21.1 % (11.5-15.5)
[2023-11-12 23:47] VITALS: BP 144/62
[2023-11-12 23:54] LABS: ALKALINE PHOSPHATASE 87 u/l (38-126); ANION GAP 19 (6-22 (CALC)); BILIRUBIN, TOTAL 0.4 mg/dL (0.02-1.3); BUN 19 mg/dL (8-23); BUN/CREATININE RATIO 17 (12-20 (CALC)); CALCULATED LDLCHOLESTEROL 50 mg/dL (62-129 (CALC)); CARBON DIOXIDE 17 mmol/l (22-30); CHLORIDE 108 mmol/l (95-108); CHOLESTEROL HDL RATIO 2.8 (<4.4 (CALC)); CREATININE 1.1 mg/dL (0.5-1.0); GFR FOR AFR.AMER. 57 ML/MIN (>=60 (CALC)); GFR OTHER RACES 47 ML/MIN (>=60 (CALC)); HDL CHOLESTEROL 57 mg/dL (39.0-59.0); MEAN CELL VOLUME 83.8 fL CALC (80.0-100.0); SGOT/AST 70 u/l (9-36); SODIUM 140 mmol/l (137-146); TOTAL CHOLESTEROL 161 mg/dl (0-199); TOTAL PROTEIN 6.4 g/dL (6.3-8.2); TOTAL TRIGLYCERIDES 271 mg/dl (0-149); VLDL CHOLESTROL 54 mg/dl (0-48 (CALC))
[2023-11-12 23:55] LABS: ETHYL ALCOHOL 0 mg/dl (0-30)
[2023-11-13] VITALS (50 sets, daily range): BP systolic 86–132; BP diastolic 42–97
[2023-11-13] LABS: INTERNATIONAL NORMALIZED RATIO 1.1 RATIO (0.7-1.3); PROTHROMBIN TIME 10.8 SECONDS (9.0-12.5)
--- NOTE | 2023-11-13 00:10 | NUR ---
CARE ASSUMED AT THIS TIME, REPORT RECIEVED FROM FERNANDA CROOKS AT THIS TIME. PATIENT ALERT AND ORIENTATED, BIPAP IN PLACE, PATIENT VERBAL AT THIS TIME, RECALLS SITUATION AT HOME, PATIENT ASSESSED FOR DEFICITS AT THIS TIME DUE TO CALLED STROKE ALERT, NIHSS NOTED FOR LAG SCREWER AT 0 WITH NO DEFICITS, PATIENT WAS ABLE TO FOLLOW ALL COMMANDS WITH NO DEFICITS, NOTED PATIENT VERBALIZED PAIN TO (L) KNEE, NO DRIFTS NOTED, PATIENT UPDATED ON CONTINUOUS PLAN OF CARE, IVF RUNNING AT THIS TIME, PUREWICK PLACED FOR URINE SPECIMEN, PATIENT VERBALIZES MILD ANXIETY DUE TO BIPAP, AWAITING FURTHER ORDERS/RESULTS AT THIS TIME.
--- NOTE | 2023-11-13 00:20 | NUR ---
PATIENT NOTED TO HAVE INCREASED WOB WITH RR. EVEN AND LABORED AT 36, PATIENT ON BIPAP AT THIS TIME PER RT SETTINGS, PATIENT CONTINUALLY STATING THE NEED TO BREATHE, PATIENT SHOWS NO DEFICIT DURING CONTINUOUS MEND ASSESSMENTS, PATIENT NOTED TO SHOW MILD ANXIETY RELATED TO VENTILATION, 02 AT 93%, VSS AT THIS TIME, PATIENT ALERT AND ORIENTATED X4, ABLE TO FOLLOW ALL COMMANDS, PATIENT/FAMILY UPDATED ON CONTINUOUS PLAN OF CARE, AWAITING ALL FURTHER QUESTIONS OR CONCERNS. MD NOTIFIED OF PATIENT STATUS DUE TO RESP. DIFFICULTY AT THIS TIME, AWAITING FURTHER ORDERS.
--- NOTE | 2023-11-13 01:24 | NUR ---
RT AT BEDSIDE FOR NEB TX AT THIS TIME.
--- NOTE | 2023-11-13 02:00 | NUR ---
PATIENT SITTING IN SIDE OF BED, ATTEMPTING TO UTILIZE TRIPOD POSITION AT THIS TIME, PATIENT CLEANED OF LARGE SOFT BM AND URINE INCONTINENCE AT THIS TIME, PATIENT ABLE TO STAND WITH STEADY GAIT AT THIS TIME, PATIENT MEND ASSESSMENT COMPLETE WITH NO DEFICITS, PATIENT REMAINS ON O2 AT 6L NC AT THIS TIME, 02 SAT AT 93%, PATIENT CONTINUES WITH AUDIBLE WHEEZES, PATIENT AWAITING ALL FURTHER RESULTS/ORDERS AT THIS TIME. FAMILY AT BEDSIDE.
--- NOTE | 2023-11-13 02:59 | NUR ---
DISCUSSED WITH MD THAT PATIENT HAS HAD RESP. DIFFICULTY SINCE ARRIVAL, NOTED PATIENT HAS NOT HAD CXR, MD VERBALIZES UNDERSTANDING, CXR ORDER PLACED. FAMILY/PATIENT NOTIFIED AT THIS TIME.
--- NOTE | 2023-11-13 03:45 | NUR ---
PATIENT RESTING IN SEMI-FOWLERS POSITON AT THIS TIME, EASILY AROUSABLE, PATIENT CONTINUES TO SHOW NO DEFICITS DURING MEND ASSESSMENTS, PATIENT SHOWS IMPROVED WOB AT THIS TIME, NOTED SNORING WITH ACTIVE NC 02 AT 6L, PATIENT VOICES APPRECIATION OF CARE, RR. EVEN AND LABORED AT THIS TIME NOTED AT 25. PATIENT CONNECTED TO CONTINUOUS MONITORING, AWAITING ALL FURTHER RESULTS/ORDERS.
--- NOTE | 2023-11-13 04:25 | NUR ---
PATENT CONTINUES TO SHOW NO DEFICITS/DRIFTS, PATIENT EASILY AROUSABLE AT THIS TIME, PATIENT ALERT AND ORIENTATED X4, PATIENT STRAIGHT CATHED FOR URINE SPECIMEN AT THIS TIME, 300ML OF CLEAR YELLOW URINE OBTAINED AT THIS TIME, WITH SMALL INCONTINENCE, PUREWICK PLACED FOR CONTINUED STRICT I/O AT THIS TIME, PATIENT AWAITING ALL FURTHER RESULTS/ORDERS. VSS, WILL CONTINUE TO MONITOR.
--- NOTE | 2023-11-13 04:41 | NUR ---
UNABLE TO DO MED REC PT IS POOR HISTORIAN
--- NOTE | 2023-11-13 04:47 | NUR ---
MD NOTIFIED OF CXR RESULTS, NO FURTHER ORDERS GIVEN AT THIS TIME.
--- NOTE | 2023-11-13 04:50 | NUR ---
PATIENT RESTING IN SEMI-FOWLERS POSTION, EASILY AROUSABLE, RR. SANTOSH AND LABORED, NOTED AT 26, PATIENT UPDATED ON CONTINUOUS PLAN OF CARE, WILL CONTINUE TO MONITOR, DURING REST PATIENT NOTED TO HAVE SNORE, ACCOMPANIED BY MINIMAL WHEEZES. WILL CONTINUE TO MONITOR, VSS.
[2023-11-13 04:59] LABS: URINE BILIRUBIN - DIPSTICK Negative (NEGATIVE); URINE BLOOD DIPSTICK Negative (NEGATIVE); URINE COLOR Yellow; URINE GLUCOSE - DIPSTICK Negative (NEGATIVE); URINE KETONE Negative (NEGATIVE); URINE LEUK ESTERASE Negative (NEGATIVE); URINE NITRITE - DIPSTICK Negative (Negative); URINE PROTEIN - DIPSTICK 100 mg/dL (NEG-TRACE); URINE SPECIFIC GRAVITY 1.015; URINE UROBILINOGEN - DIPSTICK 0.2 E.U./dL (0.2)
[2023-11-13 05:10] LABS: URINE BACTERIA FEW hpf; URINE MUCUS FEW hpf (NONE-FEW); URINE RBC 0-2 RBC/hpf (0-5); URINE SQUAMOUS EPITHELIAL CELL FEW EPI/hpf (0-FEW)
--- NOTE | 2023-11-13 05:10 | NUR ---
TELERADIOLOGY CALLED AND STATES AT THE [place] OF [place] BILATERAL CAROTIDS ARE 60% OCCLUDED.
[2023-11-13 05:11] LABS: URINE AMORPH SEDIMENT FEW hpf (NONE-FEW)
--- NOTE | 2023-11-13 05:38 | NUR ---
PATIENT RESTING IN SEMI-FOWLERS POSITION, VSS, EASILY AROUSABLE, PREWICK IN PLACE AT THIS TIME, PATIENT AWAITING ADMISSION AT THIS TIME, PATIENT CONTINUES TO SHOW NO DEFECITS AT THIS TIME, MED REC UNOBATINABLE, PATIENT CAN NOT RECALL MED LIST, PATIENT VERBALIZES UNDERSTANDING OF PLAN OF CARE WITH NO FURTHER QUESTIONS OR CONCERNS AT THIS TIME.
--- NOTE | 2023-11-13 05:50 | NUR ---
PATIENT MEDICATED PER ORDERS AT THIS TIME, VERBALIZES UNDERSTANDING OF CARE PLAN AND ADMISSION, PATIENT VOICES APPRECIATION OF CARE WITH NO FURTHER QUESTIONS OR CONCERNS AT THIS TIME. WILL CONTINUE TO MONITOR.
[2023-11-13 06:24] LABS: ALBUMIN 3.8 g/dL (3.2-5.0); ALKALINE PHOSPHATASE 86 u/l (38-126); ANION GAP 12 (6-22 (CALC)); BILIRUBIN, TOTAL 0.4 mg/dL (0.02-1.3); BUN 25 mg/dL (8-23); BUN/CREATININE RATIO 24 (12-20 (CALC)); CHLORIDE 108 mmol/l (95-108); GFR FOR AFR.AMER. > 60 ML/MIN (>=60 (CALC)); GFR OTHER RACES 53 ML/MIN (>=60 (CALC)); POTASSIUM 4.1 mmol/l (3.5-5.1); SGOT/AST 82 u/l (9-36); SODIUM 139 mmol/l (137-146); TOTAL PROTEIN 6.2 g/dL (6.3-8.2)
[2023-11-13 06:25] LABS: CARBON DIOXIDE 23 mmol/l (22-30)
[2023-11-13 06:30] LABS: BASO% 0.3 % (0-3); EOS% 0.1 % (0-8); HEMATOCRIT 35.9 % (37.0-47.0); HEMOGLOBIN 10.9 g/dl (12.0-16.0); IMMATURE GRANULOCYTES 0.3 % (0.0-5.0); LYMPH% 4.8 % (15-41); MEAN CELL VOLUME 79.6 fL CALC (80.0-100.0); MEAN CORPUSCULAR HGB 24.2 pG CALC (26.0-32.0); MEAN CORPUSCULAR HGB CONC 30.4 g/dL CAL (32.0-36.0); NEUT# 9.93 thou/uL (2.00-7.15); NEUT% 92.5 % (42-76); RED BLOOD COUNT 4.51 mill/uL (4.20-5.60); RED CELL DISTRI WIDTH 21.1 % (11.5-15.5)
--- NOTE | 2023-11-13 06:44 | NUR ---
MD NOTIFIED OF ELEVATED TROPONIN AND LACTIC AT THIS TIME, MD ORDERS EKG AT THIS TIME, VERBALIZES WILL PUT ORDERS IN APPROX. 15 MINS. TRANSFORMER STOCK CLERK NOTIFIED PATIENT IS ADMITTED TO ICU. AWAITING ALL FURTHER ORDERS AT THIS TIME.
[2023-11-13 07:45] LABS: INTERNATIONAL NORMALIZED RATIO 1.2 RATIO (0.7-1.3)
--- NOTE | 2023-11-13 07:45 | NUR ---
report received from Cassia Vaughn RN; care assumed
--- NOTE | 2023-11-13 08:00 | NUR ---
pt resting on stretcher with eyes closed; easily aroused; admission assessment completed at this time; pt alert and oriented; denies pain/ chest pain; no n/v noted; c/c per pt "I couldn't breath"; states ongoing "for a long time"; resp noted slightly labored; lungs coarse with exp wheezing throughout; crackles to bases; skin color pale; o2 per nc at 6L; hr irreg; strong pulses; trace edema noted to ble; pt states chronic edema, usually worse to lle; aflutter on the monitor; abd distended with bs present; pt admits to diarrhea last night; pt admits to voiding without pain or burning; purewick intact; #20 saline locked to lac; no redness or edema noted at site; plan of care, meds, possible transfer explained; call light within reach; will continue to monitor
--- NOTE | 2023-11-13 08:20 | NUR ---
pt offers need to stool; declined bedpan; pt insist on bsc; resp status explained; pt assist to bsc x1; tolerated with increase sob; o2 per nc; will continue to monitor
--- NOTE | 2023-11-13 08:43 | NUR ---
Dr Brock present to assess pt and discuss plan of care
--- NOTE | 2023-11-13 09:28 | NUR ---
call received from daughter Massiel; update provided including possible transfer for cardiology expained; daughter to visit this morning;
--- NOTE | 2023-11-13 10:05 | NUR ---
resting in bed with eyes closed; easily aroused; offers no complaints; iv intact and patent; heparin gtt cont at 850units/hr; call light within reach; will continue to monitor
--- NOTE | 2023-11-13 10:41 | NUR ---
teletypewriter installer spoke with Dr green in regards to soft sbp and hr; metoprolol to be held
--- NOTE | 2023-11-13 11:30 | NUR ---
cardiology TeleHealth consult completed with Dr Zavala
--- NOTE | 2023-11-13 12:01 | NUR ---
awake in bed; family at bedside; pt offers no complaints; no apparent distress noted; iv intact; heparin gtt cont at 850 units/hr; no redness or edema noted at site; call light within reach; will continue to monitor
--- NOTE | 2023-11-13 14:16 | NUR ---
awake on stretcher; offers no complaints; iv intact and patent; purewick intact; no urinary incont noted; scant pale yellow urine noted to canaster; call light within reach; will continue to monitor
--- NOTE | 2023-11-13 14:51 | NUR ---
lab at bedside for PTT draw
--- NOTE | 2023-11-13 16:00 | NUR ---
pt resting in bed with eyes closed; easily aroused; denies chest pain; offers no complaints; iv intact and patent; heparin gtt cont at 850 units/hr; no redness or edema noted at site; call light within reach; will continue to monitor
--- NOTE | 2023-11-13 16:25 | NUR ---
family x2 at bedside
--- NOTE | 2023-11-13 17:40 | NUR ---
pt transferred to ICU bed 2 via stretcher with portable o2 accompanied by this technical writer and editor; settled in bed; transferred to bed x2 assist; all monitoring attachments connected; pt with complaints of shortness breath; sr 120s on the monitor; pt very diaphoretic; technical writer and editor remains at bedside
--- NOTE | 2023-11-13 17:56 | NUR ---
pt continues with increased sob; skin color noted grayish; ST elevation noted on explosive operator grenade; pt EXTREMELY diaphorestic; code STEMI activated; Dr Brock called per this personal lines underwriter; orders verbally received; family 2 allowed at bedside; status/condition/possible transfer explained; will continue to monitor closely
--- NOTE | 2023-11-13 17:56 | NUR ---
CODE STEMI CALLED [id number] CALLED FOR STEMI ALERT EKG DONE AND SENT TO [facility]
--- NOTE | 2023-11-13 18:09 | NUR ---
Dr Brock called per health technical writer; request for ativan received; per [facility], repeatEKG of better quality;
--- NOTE | 2023-11-13 18:57 | NUR ---
xray at bedside
--- NOTE | 2023-11-13 19:00 | NUR ---
report given to Geovany Toribio LPN
--- NOTE | 2023-11-13 19:01 | NUR ---
call received from Dr Brock; updated provided; pt appears more stable; bp stable; st on monitor; o2 per nc;
--- NOTE | 2023-11-13 19:20 | NUR ---
drowsy when awakened. denies distress. o2 cont per nrb. hall monitor shows sinus tach pvcs. ivf infusing well per rac site. saline lock in place lt hand. pure wick cath in place. urine clear yellow. fall precautions cont. daughter & grandson @ bedside.
--- NOTE | 2023-11-13 20:10 | NUR ---
spoke to susan @ [facility] transfer center. pt has been accepted to hosp but no bed available @ present.
--- NOTE | 2023-11-13 20:34 | NUR ---
received call from WILMER Salter; bed assignment received; pt to transfer to [facility]; report to be called to [phone]; Joie request to be called with ETA of transport
--- NOTE | 2023-11-13 20:45 | NUR ---
bed assignment rec'd. pt signed consent for transfer. [facility] notified of need for tranport. to be @ this facility no sooner than 0130 11-14-23. daughter (leni) notified. aliza @ [facility] transfer center notified.
--- NOTE | 2023-11-13 20:45 | NUR ---
cxr result rec'd per caio @ [facility].
--- NOTE | 2023-11-13 20:50 | NUR ---
lab here. blood drawn.
[2023-11-14] VITALS (8 sets, daily range): BP systolic 99–123; BP diastolic 54–63
--- NOTE | 2023-11-14 00:01 | NUR ---
eyes closed. no distress. cardiac momitor shows sinus rhythm pvcs. o2 cont.
--- NOTE | 2023-11-14 01:40 | NUR ---
rec'd a call from cassandra @ [facility]. time has been "pushed back d/t transfer in er."
--- NOTE | 2023-11-14 04:00 | NUR ---
eyes closed. no apparent distress.
--- NOTE | 2023-11-14 05:00 | NUR ---
lab here. blood drawn.
--- NOTE | 2023-11-14 05:10 | NUR ---
[facility] here. report given.
--- NOTE | 2023-11-14 05:40 | NUR ---
[facility] left. report called to sharath wilkerson [phone]. leni (daughter) notified of transfer.
[2023-11-14 05:42] LABS: BASO% 0.1 % (0-3); HEMATOCRIT 30.9 % (37.0-47.0); HEMOGLOBIN 9.5 g/dl (12.0-16.0); IMMATURE GRANULOCYTES 0.2 % (0.0-5.0); LYMPH% 6.8 % (15-41); MEAN CELL VOLUME 78.4 fL CALC (80.0-100.0); MEAN CORPUSCULAR HGB 24.1 pG CALC (26.0-32.0); MEAN CORPUSCULAR HGB CONC 30.7 g/dL CAL (32.0-36.0); MONO% 3.7 % (2-13); NEUT# 10.09 thou/uL (2.00-7.15); NEUT% 89.2 % (42-76); RED BLOOD COUNT 3.94 mill/uL (4.20-5.60); RED CELL DISTRI WIDTH 21.3 % (11.5-15.5)
[2023-11-14 06:04] LABS: ALBUMIN 3.6 g/dL (3.2-5.0); ALKALINE PHOSPHATASE 69 u/l (38-126); ANION GAP 17 (6-22 (CALC)); BILIRUBIN, TOTAL 0.5 mg/dL (0.02-1.3); BUN 33 mg/dL (8-23); BUN/CREATININE RATIO 29 (12-20 (CALC)); CARBON DIOXIDE 21 mmol/l (22-30); CHLORIDE 103 mmol/l (95-108); CREATININE 1.2 mg/dL (0.5-1.0); GFR FOR AFR.AMER. 52 ML/MIN (>=60 (CALC)); GFR OTHER RACES 43 ML/MIN (>=60 (CALC)); MAGNESIUM 1.6 mg/dL (1.6-2.3); POTASSIUM 3.9 mmol/l (3.5-5.1); SGOT/AST 65 u/l (9-36); SODIUM 137 mmol/l (137-146); TOTAL PROTEIN 6.1 g/dL (6.3-8.2)
== END 2023-11-14 05:40 | disposition short-term general hospital (02) | DRG 280 ==
LOC: ED 23:19 → ED-I 11-13 05:10 → ICU 11-13 08:19
PROVIDERS: Family Medicine; ADMIT Student in an Organized Health Care Education/Training Program; ATTEND Student in an Organized Health Care Education/Training Program
PROC: 5A09357 Assistance with Respiratory Ventilation, Less than 24 Consecutive Hours, Continuous Positive Airway Pressure (ICD-10-PCS; principal; 2023-11-12)
DX: I21.4 Non-ST elevation (NSTEMI) myocardial infarction (principal); I50.33 Acute on chronic diastolic (congestive) heart failure; J18.9 Pneumonia, unspecified organism; G93.49 Other encephalopathy; J96.11 Chronic respiratory failure with hypoxia; J44.0 Chronic obstructive pulmonary disease with (acute) lower respiratory infection; E87.4 Mixed disorder of acid-base balance; I48.3 Typical atrial flutter; I48.0 Paroxysmal atrial fibrillation; I11.0 Hypertensive heart disease with heart failure; E11.9 Type 2 diabetes mellitus without complications; E03.9 Hypothyroidism, unspecified; F17.200 Nicotine dependence, unspecified, uncomplicated; Z99.81 Dependence on supplemental oxygen; Z79.84 Long term (current) use of oral hypoglycemic drugs; Z95.818 Presence of other cardiac implants and grafts; Z20.822 Contact with and (suspected) exposure to COVID-19
CPT/HCPCS: J1644; J2060; Q9967

== ENCOUNTER 2023-12-18 00:09 | Inpatient (IN) | payer MEDICARE ==
[2023-12-18] VITALS (39 sets, daily range): BP systolic 80–168; BP diastolic 43–87
[~2023-12-18] VITALS: Ht 157.5 cm; Wt 71.8 kg
[2023-12-18 01:12] LABS: BASO% 0.6 % (0-3); EOS% 1.4 % (0-8); HEMATOCRIT 35.5 % (37.0-47.0); HEMOGLOBIN 10.9 g/dl (12.0-16.0); IMMATURE GRANULOCYTES 0.8 % (0.0-5.0); LYMPH% 19.4 % (15-41); MEAN CELL VOLUME 78.9 fL CALC (80.0-100.0); MEAN CORPUSCULAR HGB 24.2 pG CALC (26.0-32.0); MEAN CORPUSCULAR HGB CONC 30.7 g/dL CAL (32.0-36.0); MONO% 4.3 % (2-13); NEUT# 8.82 thou/uL (2.00-7.15); NEUT% 73.5 % (42-76); RED BLOOD COUNT 4.5 mill/uL (4.20-5.60)
[2023-12-18 01:19] LABS: BILIRUBIN, TOTAL 0.6 mg/dL (0.02-1.3); CREATININE 1.3 mg/dL (0.5-1.0); POTASSIUM 3.8 mmol/l (3.5-5.1); TOTAL PROTEIN 6.3 g/dL (6.3-8.2)
[2023-12-18 01:40] LABS: INTERNATIONAL NORMALIZED RATIO 1.2 RATIO (0.7-1.3); PROTHROMBIN TIME 11.3 SECONDS (9.0-12.5)
--- NOTE | 2023-12-18 07:02 | NUR ---
REPORT RECIEVED FROM FERNANDA LECHUGA. PT RESTING IN BED, EYES CLOSED.
--- NOTE | 2023-12-18 08:15 | NUR ---
PT UP TO BEDSIDE COMODE WITH ASSIST X1, 1000 ML OF URINE OUTPUT, PT CHANGED TO GOWN AND PLACED IN ADMIT BED IN ER, SOCKS AND NEW BRIEF PROVODED.
--- NOTE | 2023-12-18 09:15 | NUR ---
PT SITTING AT EDGE OF BED EATING BREAKFAST, PT HAS CALL LIGHT, EDUCATED ON CONT WAIT TIME IN ER FOR ADMIT TO FLOOR, SHE UNDERSTANDS
--- NOTE | 2023-12-18 10:16 | NUR ---
pt resting in bed, lights dimmed, call light within reach
--- NOTE | 2023-12-18 11:01 | NUR ---
PT RESTING IN BED, EYES CLOSED, LIGHTS DIMMED FOR COMFORT, CALL LIGHT WITHIN REACH
--- NOTE | 2023-12-18 11:09 | NUR ---
report received from FERNANDA Martino; care assumed
--- NOTE | 2023-12-18 11:30 | NUR ---
pt resting in bed with eyes closed; no apparent distress noted; easily aroused; offers no complaints; admission assessment completed; pt alert and oriented; denies pain/chest pain; no sob noted; no n/v noted; resp even and unlabored; lungs clear/diminished bases; skin color wnl; o2 per nc; no cough noted; hr irreg; strong pulses; trace edema noted to ble; afib on monitor; abd distended/soft; pt admits to bm this am; no urine to inspect at this time; brief cdi; bsc; #20 ems site flushed and patent to lw; no redness or edema noted; plan of care/meds explained; call light within reach; will continue to monitor
--- NOTE | 2023-12-18 11:35 | NUR ---
Dr Brock present at bedside to assess pt and discuss plan of care
--- NOTE | 2023-12-18 12:00 | NUR ---
awake in bed; offers no complaints; meal provided; daughter Massiel at bedside
--- NOTE | 2023-12-18 14:22 | NUR ---
awake in bed; offers no complaints; no apparent distress noted; iv intact; call light within reach; will continue to monitor
--- NOTE | 2023-12-18 15:02 | NUR ---
assisted to bsc; offers no complaints; able to void 700cc yellow urine; call light within reach; will continue to monitor
--- NOTE | 2023-12-18 15:45 | NUR ---
pt transferred to [facility] via bed with portable o2, tele intact; settled in bed; oriented to room and call light; will continue to monitor
--- NOTE | 2023-12-18 18:10 | NUR ---
awake sitting at the side of the bed; offers no complaints; iv intact; sr on monitor; call light within reach
--- NOTE | 2023-12-18 22:34 | NUR ---
PT SITTING UP IN RECLINER EARLIER IN SHIFT. ALERT AND ORIENTED X 3 VERY PLEASANT. ON 02 VIA NC AT 2 LITERS. RESPIRATIONS ARE SHALLOW. PT USES PURSE LIP BREATHING AT TIMES. IN NO ACUTE DISTRESS. ON TELE SR 70. TOP BED RAILS UP. SAFETY PRECATIONS MAINTAINED CALL LIGHT IN REACH
[2023-12-19 00:49] VITALS: BP 110/41
[2023-12-19] MEDS ORDERED: LEVO-T137 MCG PO (05:51)
[2023-12-19] MEDS ORDERED: ZITHROMAX250 MG PO ×2 (05:51→13:41)
[2023-12-19] MEDS ORDERED: PREDNISONE50 MG PO ×2 (05:51→13:41)
[2023-12-19] MEDS ORDERED: ATORVASTATIN CA40 MG PO (05:51)
[2023-12-19] MEDS ORDERED: COZAAR50 MG PO (05:51)
[2023-12-19 06:48] LABS: BASO% 0.1 % (0-3); HEMATOCRIT 30.8 % (37.0-47.0); HEMOGLOBIN 9.5 g/dl (12.0-16.0); IMMATURE GRANULOCYTES 0.3 % (0.0-5.0); MEAN CELL VOLUME 76.6 fL CALC (80.0-100.0); MEAN CORPUSCULAR HGB 23.6 pG CALC (26.0-32.0); MEAN CORPUSCULAR HGB CONC 30.8 g/dL CAL (32.0-36.0); MONO% 2.7 % (2-13); NEUT# 11.59 thou/uL (2.00-7.15); NEUT% 90.9 % (42-76); RED BLOOD COUNT 4.02 mill/uL (4.20-5.60); RED CELL DISTRI WIDTH 17.7 % (11.5-15.5)
[2023-12-19 07:07] VITALS: BP 110/40
[2023-12-19 07:18] LABS: ALBUMIN 3.6 g/dL (3.2-5.0); BILIRUBIN, TOTAL 0.5 mg/dL (0.02-1.3); CHOLESTEROL HDL RATIO 2.6 (<4.4 (CALC)); CREATININE 1.1 mg/dL (0.5-1.0); MAGNESIUM 1.2 mg/dL (1.6-2.3); TOTAL PROTEIN 5.8 g/dL (6.3-8.2)
--- NOTE | 2023-12-19 07:29 | NUR ---
SHIFT CHANGE REPORT, PT SLEEPING BUT AWAKENS TO VERBAL STIMULI, ORIENTED, NO C/O DISCOMFORT AND STATES SHE FEELS BETTER THAN WHEN SHE FIRST GOT HERE, O2 @ 2L VIA NC IN PLACE, TELE MONITOR IN PLACE, CALL STOUT IN REACH AND BED LOCKED IN LOWEST POSITION.
[2023-12-19 10:37] VITALS: BP 141/49
--- NOTE | 2023-12-19 10:37 | NUR ---
IV ABT INFUSING, PT C/O BURNING AT SITE, FLOW RATE LOWERED AND ICE PACK APPLIED, PT STATES IT FEELS BETTER.
--- NOTE | 2023-12-19 14:56 | NUR ---
Discharge instructions given. Patient verbalizes understanding of same. Discharged in fair condition via Wheelchair to Home with family. All belongings sent with pt.
--- NOTE | 2023-12-21 11:02 | NUR ---
Discharge follow up call completed 12/21/23. Pt states she is doing well and had no setbacks since discharge. Pt is taking prescribed medication without issue. Pt followed up with her PCP yesterday. Home Health nurse is scheduled to visit patient today. No needs or concerns verbalized at this time. Pt is appreciative of follow up call.
== END 2023-12-19 13:50 | disposition home health service (06) | DRG 291 ==
LOC: ED 00:09 → ED-I 02:15 → ED 02:36 → ED-I 02:37 → MS2 15:45
PROVIDERS: Family Medicine; ADMIT Student in an Organized Health Care Education/Training Program; ATTEND Student in an Organized Health Care Education/Training Program
PROC: 5A09357 Assistance with Respiratory Ventilation, Less than 24 Consecutive Hours, Continuous Positive Airway Pressure (ICD-10-PCS; principal; 2023-12-18)
DX: I11.0 Hypertensive heart disease with heart failure (principal); I50.33 Acute on chronic diastolic (congestive) heart failure; J44.1 Chronic obstructive pulmonary disease with (acute) exacerbation; J96.11 Chronic respiratory failure with hypoxia; I48.3 Typical atrial flutter; E11.59 Type 2 diabetes mellitus with other circulatory complications; I25.10 Atherosclerotic heart disease of native coronary artery without angina pectoris; F17.200 Nicotine dependence, unspecified, uncomplicated; I48.91 Unspecified atrial fibrillation; E03.9 Hypothyroidism, unspecified; I25.2 Old myocardial infarction; Z95.818 Presence of other cardiac implants and grafts; Z66 Do not resuscitate; Z79.84 Long term (current) use of oral hypoglycemic drugs; Z99.81 Dependence on supplemental oxygen; Z20.822 Contact with and (suspected) exposure to COVID-19
CPT/HCPCS: J1650; J3475

== ENCOUNTER 2024-12-14 20:22 | Emergency (ER) | payer MEDICARE ==
[~2024-12-14] VITALS: Ht 152.4 cm; Wt 81.6 kg
[~2024-12-14 20:22] MED LIST changes: +ATORVASTATIN CA40 MG PO; +COZAAR50 MG PO; +LEVO-T137 MCG PO; +XANAX0.5 MG PO; +ZITHROMAX250 MG PO
[2024-12-14 20:37] VITALS: BP 184/138
[2024-12-14] MEDS ORDERED: ACETAMINOPHEN 500 MG TAB PO ONE (20:40)
[2024-12-14] MEDS ORDERED: DICLOFENAC SODIUM 75 MG/TAB PO ONE (20:40)
[2024-12-14] MEDS ORDERED: NEOMYCIN-BACITRACIN-POLYMYXIN 0.5 GM/PAK PAK TOP ONE (20:40)
[2024-12-14 21:01] VITALS: BP 184/71
[2024-12-14 21:48] VITALS: BP 182/64
[2024-12-14 22:00] VITALS: BP 155/64
[2024-12-14 22:15] VITALS: BP 155/64
== END 2024-12-14 22:15 | disposition home or self-care (01) ==
LOC: ED 20:22
DX: S50.311A Abrasion of right elbow, initial encounter (principal); S50.312A Abrasion of left elbow, initial encounter; S61.012A Laceration without foreign body of left thumb without damage to nail, initial encounter; I11.0 Hypertensive heart disease with heart failure; I50.9 Heart failure, unspecified; J96.10 Chronic respiratory failure, unspecified whether with hypoxia or hypercapnia; E11.9 Type 2 diabetes mellitus without complications; J44.9 Chronic obstructive pulmonary disease, unspecified; F41.9 Anxiety disorder, unspecified; I25.2 Old myocardial infarction; W01.0XXA Fall on same level from slipping, tripping and stumbling without subsequent striking against object, initial encounter; Y92.481 Parking lot as the place of occurrence of the external cause; Z99.81 Dependence on supplemental oxygen; Z79.84 Long term (current) use of oral hypoglycemic drugs

== ENCOUNTER 2025-01-04 16:47 | Observation (INO) | payer MEDICARE ==
[~2025-01-04] VITALS: Ht 152.4 cm; Wt 79.6 kg
[2025-01-04] VITALS (11 sets, daily range): BP systolic 120–145; BP diastolic 51–108
[2025-01-04] MEDS ORDERED: ASPIRIN 81 MG/TAB PO ONE (17:10)
[2025-01-04 17:13] LABS: BASO% 0.1 % (0-3); EOS% 1.2 % (0-8); HEMOGLOBIN 12.3 g/dl (12.0-16.0); IMMATURE GRANULOCYTES 0.8 % (0.0-5.0); LYMPH% 7.5 % (15-41); MEAN CELL VOLUME 84.6 fL CALC (80.0-100.0); MEAN CORPUSCULAR HGB 26.7 pG CALC (26.0-32.0); MEAN CORPUSCULAR HGB CONC 31.5 g/dL CAL (32.0-36.0); MONO% 5.8 % (2-13); NEUT# 11.6 thou/uL (2.00-7.15); NEUT% 84.6 % (42-76); RED BLOOD COUNT 4.61 mill/uL (4.20-5.60); RED CELL DISTRI WIDTH 17.1 % (11.5-15.5)
[2025-01-04 17:28] LABS: INTERNATIONAL NORMALIZED RATIO 1.1 RATIO (0.7-1.3)
[2025-01-04 17:30] LABS: PROTHROMBIN TIME 11.4 SECONDS (9.0-12.5)
[2025-01-04 17:33] LABS: ALBUMIN 3.6 g/dL (3.2-5.0); BILIRUBIN, TOTAL 0.8 mg/dL (0.02-1.3); CREATININE 1.3 mg/dL (0.5-1.0); POTASSIUM 3.5 mmol/l (3.5-5.1); TOTAL PROTEIN 6.3 g/dL (6.3-8.2)
[2025-01-04] MEDS ORDERED: JARDIANCE25 MG (18:34)
[2025-01-04] MEDS ORDERED: RA IRON65 MG (18:34)
[2025-01-04] MEDS ORDERED: XANAX0.25 MG PO (18:35)
[2025-01-04] MEDS ORDERED: MOUNJARO7.5 M1 (18:36)
[2025-01-04] MEDS ORDERED: GABAPENTIN100 MG PO (18:37)
[2025-01-04] MEDS ORDERED: TRELEGY ELLIPTA1 AER (18:37)
[2025-01-04] MEDS ORDERED: OMEPRAZOLE DR40 MG (18:39)
[2025-01-04] MEDS ORDERED: PREVAGEN10 MG PO (18:39)
[2025-01-04] MEDS ORDERED: AZITHROMYCIN 500 MG in SODIUM CHLORIDE 0.9% 500 ML IV ONE ×2 (19:55→23:00)
[2025-01-04] MEDS ORDERED: ACETAMINOPHEN 325 MG/TAB PO PRN (20:00)
[2025-01-04] MEDS ORDERED: MAGNESIUM HYDROXIDE 30 ML UDC PO PRN (20:00)
[2025-01-04] MEDS ORDERED: XANAX0.5 MG PO (20:04)
[2025-01-04] MEDS ORDERED: ALPRAZolam 0.5 MG/TAB PO PRN (20:05)
[2025-01-04] MEDS ORDERED: IPRATROPIUM-Albuterol 0.5MG-2.5MG/3 ML NEB PRN (20:10)
[2025-01-04] MEDS ORDERED: PANTOPRAZOLE SODIUM Sesquihydr 40 MG/TAB PO SCH (21:00)
[2025-01-04] MEDS ORDERED: GABAPENTIN 100 MG/CAP PO SCH (21:00)
[2025-01-04] MEDS ORDERED: ASPIRIN 81 MG/TAB PO SCH (21:00)
[2025-01-04] MEDS ORDERED: Zaleplon 5 MG/CAP PO SCH (21:00)
[2025-01-04] MEDS ORDERED: ATORVASTATIN CALCIUM 40 MG/TAB PO SCH (21:00)
[2025-01-04] MEDS ORDERED: Heparin SODIUM (Porcine) 5,000 UNITS/ML SDV SC SCH (22:00)
[2025-01-05 04:26] VITALS: BP 114/54
[2025-01-05 06:46] VITALS: BP 99/45
[2025-01-05 07:25] LABS: BASO% 0.2 % (0-3); EOS% 1.2 % (0-8); HEMATOCRIT 35.8 % (37.0-47.0); HEMOGLOBIN 11.8 g/dl (12.0-16.0); IMMATURE GRANULOCYTES 1.2 % (0.0-5.0); LYMPH% 9.2 % (15-41); MEAN CELL VOLUME 82.7 fL CALC (80.0-100.0); MEAN CORPUSCULAR HGB 27.3 pG CALC (26.0-32.0); MONO% 7.8 % (2-13); NEUT# 9.79 thou/uL (2.00-7.15); NEUT% 80.4 % (42-76); RED BLOOD COUNT 4.33 mill/uL (4.20-5.60)
[2025-01-05 07:53] LABS: BILIRUBIN, TOTAL 0.7 mg/dL (0.02-1.3); CHOLESTEROL HDL RATIO 3.3 (<4.4 (CALC)); CREATININE 1.2 mg/dL (0.5-1.0); MAGNESIUM 1.5 mg/dL (1.6-2.3); POTASSIUM 3.2 mmol/l (3.5-5.1); TOTAL PROTEIN 5.3 g/dL (6.3-8.2)
[2025-01-05 07:57] LABS: ALBUMIN 2.8 g/dL (3.2-5.0)
[2025-01-05] MEDS ORDERED: methylPREDNISolone Sod Succ 40 MG/ML SDV IV SCH (11:30)
[2025-01-05] MEDS ORDERED: MAGNESIUM SULFATE HEPTAHYDRATE 50 ML IV SCH (12:00)
[2025-01-05 19:02] VITALS: BP 139/61
[2025-01-05] MEDS ORDERED: AZITHROMYCIN 500 MG in SODIUM CHLORIDE 0.9% 250 ML IV SCH (22:00)
[2025-01-05 23:25] VITALS: BP 130/53
[2025-01-06 04:11] VITALS: BP 155/58
[2025-01-06 05:15] LABS: BASO% 0.2 % (0-3); EOS% 0.1 % (0-8); HEMATOCRIT 34.3 % (37.0-47.0); HEMOGLOBIN 11.2 g/dl (12.0-16.0); IMMATURE GRANULOCYTES 0.7 % (0.0-5.0); LYMPH% 4.7 % (15-41); MEAN CELL VOLUME 84.1 fL CALC (80.0-100.0); MEAN CORPUSCULAR HGB 27.5 pG CALC (26.0-32.0); MEAN CORPUSCULAR HGB CONC 32.7 g/dL CAL (32.0-36.0); MONO% 2.2 % (2-13); NEUT# 10.01 thou/uL (2.00-7.15); NEUT% 92.1 % (42-76); RED BLOOD COUNT 4.08 mill/uL (4.20-5.60); RED CELL DISTRI WIDTH 16.9 % (11.5-15.5)
[2025-01-06 05:27] LABS: ALBUMIN 2.9 g/dL (3.2-5.0); TOTAL PROTEIN 5.5 g/dL (6.3-8.2)
[2025-01-06 05:32] LABS: BILIRUBIN, TOTAL 0.4 mg/dL (0.02-1.3); MAGNESIUM 2.1 mg/dL (1.6-2.3); POTASSIUM 4.2 mmol/l (3.5-5.1)
[2025-01-06 07:00] VITALS: BP 140/59
[2025-01-06] MEDS ORDERED: PREDNISONE10 MG PO (09:58)
[2025-01-06] MEDS ORDERED: VANTIN200 M1 PO (09:58)
[2025-01-06] MEDS ORDERED: AZITHROMYCIN500 MG PO (09:58)
[2025-01-06 11:13] VITALS: BP 152/50
== END 2025-01-06 12:44 | disposition home health service (06) ==
LOC: ED 16:47 → ED-I 19:41 → ED 19:57 → MS2 19:58
PROVIDERS: Nurse Practitioner; Nurse Practitioner Family; ADMIT Internal Medicine; ATTEND Internal Medicine
DX: R07.81 Pleurodynia (principal); J18.9 Pneumonia, unspecified organism; J44.0 Chronic obstructive pulmonary disease with (acute) lower respiratory infection; J96.10 Chronic respiratory failure, unspecified whether with hypoxia or hypercapnia; I13.0 Hypertensive heart and chronic kidney disease with heart failure and stage 1 through stage 4 chronic kidney disease, or unspecified chronic kidney disease; I50.22 Chronic systolic (congestive) heart failure; E11.22 Type 2 diabetes mellitus with diabetic chronic kidney disease; N18.9 Chronic kidney disease, unspecified; I48.91 Unspecified atrial fibrillation; I25.10 Atherosclerotic heart disease of native coronary artery without angina pectoris; E03.9 Hypothyroidism, unspecified; E89.2 Postprocedural hypoparathyroidism; F41.9 Anxiety disorder, unspecified; I25.2 Old myocardial infarction; F17.200 Nicotine dependence, unspecified, uncomplicated; Z86.73 Personal history of transient ischemic attack (TIA), and cerebral infarction without residual deficits; Z86.16 Personal history of COVID-19; Z99.81 Dependence on supplemental oxygen; Z79.85 Long-term (current) use of injectable non-insulin antidiabetic drugs; Z95.818 Presence of other cardiac implants and grafts
CPT/HCPCS: J0456; J0696; J1644; J3475; Q9967

== ENCOUNTER 2025-01-12 16:59 | Observation (INO) | payer MEDICARE ==
[2025-01-12] VITALS (22 sets, daily range): BP systolic 94–168; BP diastolic 39–82
[~2025-01-12] VITALS: Ht 152.4 cm; Wt 80.5 kg
[~2025-01-12 16:59] MED LIST changes: +AZITHROMYCIN500 MG PO; +GABAPENTIN100 MG PO; +JARDIANCE25 MG; +MOUNJARO7.5 M1; +OMEPRAZOLE DR40 MG; +PREVAGEN10 MG PO; +RA IRON65 MG; +TRELEGY ELLIPTA1 AER
[2025-01-12] MEDS ORDERED: ASPIRIN 81 MG/TAB PO ONE (17:05)
[2025-01-12] MEDS ORDERED: NITROGLYCERIN 0.4 MG/TAB SL ONE (17:15)
[2025-01-12 17:31] LABS: BASO% 0.4 % (0-3); EOS% 1.9 % (0-8); HEMATOCRIT 38.1 % (37.0-47.0); HEMOGLOBIN 12.3 g/dl (12.0-16.0); IMMATURE GRANULOCYTES 0.7 % (0.0-5.0); MEAN CELL VOLUME 83.4 fL CALC (80.0-100.0); MEAN CORPUSCULAR HGB 26.9 pG CALC (26.0-32.0); MEAN CORPUSCULAR HGB CONC 32.3 g/dL CAL (32.0-36.0); MONO% 4.5 % (2-13); NEUT# 8.94 thou/uL (2.00-7.15); NEUT% 78.5 % (42-76); RED BLOOD COUNT 4.57 mill/uL (4.20-5.60); RED CELL DISTRI WIDTH 17.4 % (11.5-15.5)
[2025-01-12 17:55] LABS: ALKALINE PHOSPHATASE 55 u/l (38-126); ANION GAP 11 (6-22 (CALC)); BUN 30 mg/dL (8-23); BUN/CREATININE RATIO 19 (12-20 (CALC)); CARBON DIOXIDE 22 mmol/l (22-30); CHLORIDE 106 mmol/l (95-108); CREATININE 1.6 mg/dL (0.5-1.0); ESTIMATED GFR 31 ML/MIN (>=90 (CALC)); LIPASE 176 u/l (23-300); POTASSIUM 4.3 mmol/l (3.5-5.1); SGOT/AST 36 u/l (9-36); SODIUM 136 mmol/l (137-146); TOTAL PROTEIN 6.2 g/dL (6.3-8.2)
[2025-01-12 17:56] LABS: ALBUMIN 3.5 g/dL (3.2-5.0); BILIRUBIN, TOTAL 0.8 mg/dL (0.02-1.3)
[2025-01-12] MEDS ORDERED: ENOXAPARIN SODIUM 80 MG/0.8 ML SYR SC ONE (20:25)
[2025-01-12] MEDS ORDERED: MAGNESIUM HYDROXIDE 30 ML UDC PO PRN (20:45)
[2025-01-12] MEDS ORDERED: ACETAMINOPHEN 325 MG/TAB PO PRN (20:45)
[2025-01-12] MEDS ORDERED: ALPRAZolam 0.5 MG/TAB PO PRN (20:50)
[2025-01-12] MEDS ORDERED: GABAPENTIN 100 MG/CAP PO SCH (21:00)
[2025-01-12] MEDS ORDERED: ATORVASTATIN CALCIUM 40 MG/TAB PO SCH (21:00)
[2025-01-12] MEDS ORDERED: ASPIRIN 81 MG/TAB PO SCH (21:00)
[2025-01-12] MEDS ORDERED: ALBUTEROL SULFATE 8 GM INH IN ONE (22:55)
[2025-01-13 00:08] VITALS: BP 110/38
[2025-01-13] MEDS ORDERED: DEXTROSE 250 ML IV PRN (00:25)
[2025-01-13] MEDS ORDERED: DEXTROSE 50% 50 ML/SYR IV PRN (00:30)
[2025-01-13 04:48] VITALS: BP 109/43
[2025-01-13] MEDS ORDERED: IPRATROPIUM-Albuterol 0.5MG-2.5MG/3 ML IN PRN (05:55)
[2025-01-13] MEDS ORDERED: LEVOTHYROXINE SODIUM 112 MCG/TAB PO SCH (06:00)
[2025-01-13] MEDS ORDERED: LEVOTHYROXINE SODIUM 25 MCG/TAB PO SCH (06:00)
[2025-01-13] MEDS ORDERED: INSULIN LISPRO 100 UNITS/ML ML SC SCH (07:00)
[2025-01-13] MEDS ORDERED: PANTOPRAZOLE SODIUM Sesquihydr 40 MG/TAB PO SCH (07:00)
[2025-01-13 07:31] VITALS: BP 113/46
[2025-01-13] MEDS ORDERED: ENOXAPARIN SODIUM 100 MG/ML SYR SC SCH (09:00)
[2025-01-13 18:25] VITALS: BP 122/53
[2025-01-13] MEDS ORDERED: APIXABAN BASE 5 MG TAB PO SCH (20:00)
[2025-01-13] MEDS ORDERED: ENOXAPARIN SODIUM 80 MG/0.8 ML SYR SC SCH (21:00)
[2025-01-14 00:31] VITALS: BP 129/42
[2025-01-14 04:50] VITALS: BP 131/43
[2025-01-14 07:06] LABS: HEMATOCRIT 33.4 % (37.0-47.0); HEMOGLOBIN 10.5 g/dl (12.0-16.0); MEAN CELL VOLUME 87.7 fL CALC (80.0-100.0); MEAN CORPUSCULAR HGB 27.6 pG CALC (26.0-32.0); MEAN CORPUSCULAR HGB CONC 31.4 g/dL CAL (32.0-36.0); RED BLOOD COUNT 3.81 mill/uL (4.20-5.60); RED CELL DISTRI WIDTH 17.4 % (11.5-15.5)
[2025-01-14 07:08] VITALS: BP 136/47
[2025-01-14 07:13] LABS: ALBUMIN 2.9 g/dL (3.2-5.0); BILIRUBIN, TOTAL 0.6 mg/dL (0.02-1.3); CREATININE 1.5 mg/dL (0.5-1.0); TOTAL PROTEIN 5.3 g/dL (6.3-8.2)
[2025-01-14 10:20] VITALS: BP 133/57
[2025-01-14] MEDS ORDERED: ELIQUIS STARTER5 MG PO (10:35)
[2025-01-14] MEDS ORDERED: TRAMADOL HYDROC50 M1 PO (10:36)
[2025-01-14 15:03] VITALS: BP 134/65
[2025-01-20] MEDS ORDERED: APIXABAN BASE 5 MG TAB PO SCH (20:00)
== END 2025-01-14 15:56 ==
LOC: ED 16:59 → ED-I 20:00 → ED 20:32 → MS2 20:33
PROVIDERS: Nurse Practitioner; Nurse Practitioner Family; ADMIT Internal Medicine; ATTEND Internal Medicine
DX: I26.93 Single subsegmental thrombotic pulmonary embolism without acute cor pulmonale (principal); I10 Essential (primary) hypertension; E11.40 Type 2 diabetes mellitus with diabetic neuropathy, unspecified; J44.9 Chronic obstructive pulmonary disease, unspecified; J96.10 Chronic respiratory failure, unspecified whether with hypoxia or hypercapnia; I44.0 Atrioventricular block, first degree; I48.91 Unspecified atrial fibrillation; E78.5 Hyperlipidemia, unspecified; E03.9 Hypothyroidism, unspecified; F41.9 Anxiety disorder, unspecified; I25.2 Old myocardial infarction; M54.9 Dorsalgia, unspecified; Z99.81 Dependence on supplemental oxygen; Z95.0 Presence of cardiac pacemaker; R07.9 Chest pain, unspecified
CPT/HCPCS: J1650; Q9967

== ENCOUNTER 2025-01-20 10:09 | Emergency (ER) | payer MEDICARE ==
[~2025-01-20] VITALS: Ht 152.4 cm; Wt 90.0 kg
[~2025-01-20 10:09] MED LIST changes: +ELIQUIS STARTER5 MG PO; +TRAMADOL HYDROC50 M1 PO
[2025-01-20] MEDS ORDERED: ONDANSETRON HCl 4 MG/2 ML SDV IV ONE (10:15)
[2025-01-20] MEDS ORDERED: Pantoprazole Sodium 40 MG VIAL (Protonix) IV ONE (10:15)
[2025-01-20] MEDS ORDERED: METOPROL TAR25 M1 PO (10:24)
[2025-01-20] MEDS ORDERED: LOSARTAN POTASS50 MG PO (10:25)
[2025-01-20] MEDS ORDERED: OMEPRAZOLE DR40 MG PO (10:27)
[2025-01-20] MEDS ORDERED: MORPHINE SULFATE 4 MG/ML VIAL IV ONE (11:05)
[2025-01-20 11:39] LABS: BASO% 0.5 % (0-3); EOS% 1.2 % (0-8); IMMATURE GRANULOCYTES 1.2 % (0.0-5.0); LYMPH% 11.6 % (15-41); MEAN CORPUSCULAR HGB 27.7 pG CALC (26.0-32.0); MEAN CORPUSCULAR HGB CONC 29.8 g/dL CAL (32.0-36.0); MONO% 4.3 % (2-13); NEUT# 9.27 thou/uL (2.00-7.15); NEUT% 81.2 % (42-76); RED BLOOD COUNT 1.73 mill/uL (4.20-5.60)
[2025-01-20 11:41] LABS: HEMOGLOBIN 4.8 g/dl (12.0-16.0); MEAN CELL VOLUME 93.1 fL CALC (80.0-100.0)
[2025-01-20 11:42] LABS: HEMATOCRIT 16.1 % (37.0-47.0)
[2025-01-20] MEDS ORDERED: SODIUM CHLORIDE 0.9% 500 ML IV ONE (11:45)
[2025-01-20 11:50] LABS: INTERNATIONAL NORMALIZED RATIO 1.4 RATIO (0.7-1.3)
[2025-01-20 11:55] LABS: PROTHROMBIN TIME 14.4 SECONDS (9.0-12.5)
[2025-01-20] MEDS ORDERED: cefTRIAXone SODIUM 2 GM in SODIUM CHLORIDE 0.9% 100 ML IV ONE (12:00)
[2025-01-20] MEDS ORDERED: PROTHROMBIN COMPLEX CONCENTRAT 500 IU/VIAL VIAL IV ONE (12:00)
[2025-01-20 12:06] LABS: ALBUMIN 3.2 g/dL (3.2-5.0); BILIRUBIN, TOTAL 0.6 mg/dL (0.02-1.3); CREATININE 1.8 mg/dL (0.5-1.0); POTASSIUM 3.8 mmol/l (3.5-5.1); TOTAL PROTEIN 5.6 g/dL (6.3-8.2)
[2025-01-20 13:14] VITALS: BP 132/49
== END 2025-01-20 13:16 | disposition short-term general hospital (02) ==
LOC: ED 10:09
PROVIDERS: Family Medicine
PROC: 05HM33Z Insertion of Infusion Device into Right Internal Jugular Vein, Percutaneous Approach (ICD-10-PCS; principal; 2025-01-20)
DX: K92.2 Gastrointestinal hemorrhage, unspecified (principal); D62 Acute posthemorrhagic anemia; I26.99 Other pulmonary embolism without acute cor pulmonale; I12.9 Hypertensive chronic kidney disease with stage 1 through stage 4 chronic kidney disease, or unspecified chronic kidney disease; E11.22 Type 2 diabetes mellitus with diabetic chronic kidney disease; N18.9 Chronic kidney disease, unspecified; I48.91 Unspecified atrial fibrillation; J44.9 Chronic obstructive pulmonary disease, unspecified; J96.10 Chronic respiratory failure, unspecified whether with hypoxia or hypercapnia; E78.5 Hyperlipidemia, unspecified; F41.9 Anxiety disorder, unspecified; I25.2 Old myocardial infarction; F17.200 Nicotine dependence, unspecified, uncomplicated; Z95.818 Presence of other cardiac implants and grafts; Z86.73 Personal history of transient ischemic attack (TIA), and cerebral infarction without residual deficits; Z99.81 Dependence on supplemental oxygen; Z79.01 Long term (current) use of anticoagulants
CPT/HCPCS: J0696; J2405; J2470; J7168